=== PATIENT | female | born 1975 | race Caucasian/White ===

== ENCOUNTER 2024-07-18 08:02 | Outpatient (CLI) | payer OTHER, SELFPAY ==
--- NOTE | 2024-07-18 08:15 | CRLHL7_ITS ---
For Patients: As a result of the Century Cures Act, medical imaging exams and procedure reports are released immediately into your electronic medical record. You may view this report before your referring provider. If you have questions, please contact your health care provider. CLINICAL HISTORY: Nontoxic single thyroid nodule TECHNIQUE: [place]-scale and color Doppler images were acquired of the thyroid gland. FINDINGS: The right lobe measures 4.7 x 2.6 x 2.5 centimeters and the left lobe measures 4.4 x 2.1 x 2.1 centimeters in size. There are no suspicious masses or nodules. Extremely heterogeneous echotexture throughout the thyroid gland increased vascularity throughout the thyroid gland IMPRESSION: Heterogeneous appearance with increased vascularity within the thyroid gland. No discrete nodule. Findings could be seen with thyroiditis. Dictated by Erma Pickering MD @ 07/18/2024 9:36:32 AM (Electronically Signed)
== END 2024-07-18 08:03 | disposition home or self-care (01) ==
PROVIDERS: PCP Family Medicine; Visit Provider Family Medicine
DX: E04.1 Nontoxic single thyroid nodule (principal)
CPT/HCPCS: 76536